=== PATIENT | female | born 1970 | race Caucasian/White ===

== ENCOUNTER 2024-02-01 08:00 | Emergency (ER) | payer BC, SELFPAY ==
--- NOTE | ~2024-02-01 | XR_ITS ---
EXAMINATION: XR TIBIA AND FIBULA, LEFT CLINICAL INFORMATION: Tibia and fibula pain. COMPARISON: Left ankle 02/01/2024 at 9:00 AM. TECHNIQUE: AP and lateral views of the left tibia and fibula were obtained. FINDINGS: There is an oblique fibular fracture with moderate lateral malleolar soft tissue swelling. There is a mildly displaced medial malleolar fracture as well. The ankle mortise and subtalar joints are maintained normal. XR/XR tibia fibula LT 2V IMPRESSION: There is oblique fibular fracture distal fibula with extension to articular surface stabilized with left ankle in a cast. The medial malleolar fracture is mildly displaced and stabilized.
--- NOTE | ~2024-02-01 | XR_ITS ---
EXAMINATION: XR ANKLE, LEFT CLINICAL INFORMATION: Left ankle swelling COMPARISON: 06/11/2019 TECHNIQUE: AP, lateral, and mortise views of the left ankle. FINDINGS: Significant ankle soft tissue swelling, laterally greater than medially. Lateral mortise is slightly widened. Distal fibular fracture with small displaced bony fragment seen. Likely comminuted fractures of the medial malleolus present with small avulsed fracture fragment. Posterior malleolar fracture is also suspected. Well-corticated distal fibular old fracture fragments again seen. XR/XR ankle LT min 3V IMPRESSION: Consider CT for more definitive evaluation of multiple complex ankle fractures involving distal fibula, medial malleolus and likely posterior malleolus. Question ankle mortise disruption. Significant soft tissue swelling.
[2024-02-01 08:02] VITALS: BP 189/80; PULSE 79; RESP 18; TEMP 36.8; O2SAT 97; BMI 30.3
--- NOTE | 2024-02-01 08:15 | ED_ITS ---
HPI - Extremity Injury (Lower) General Chief Complaint: Extremity Injury, Lower Stated Complaint: Ankle injury Time Seen by Provider: 02/01/24 08:14 Source: patient Mode of arrival: ambulatory Limitations: no limitations History of Present Illness HPI Narrative: This is a 53-year-old female presenting with left ankle pain and swelling status post slipping earlier this morning. Patient reports she was going down the ramp, slipped, ankle rolled outward since then has been having pain and swelling. She did not fall, hit her head or lose consciousness. She has not on blood thinners. She reports pain worse with movement better at rest. Denies numbness and tingling. No headache, vision changes, dizziness, weakness, chest pain, shortness of breath or any preceding symptoms to fall Related Data Previous Rx's Medication Instructions Recorded ketorolac 10 mg tablet 10 mg PO TID PRN pain 5 days #15 02/01/24 tabs Allergies Allergy/AdvReac Type Severity Reaction Status Date / Time liraglutide [From Victoza] Allergy Unknown Abdominal Verified 02/01/24 09:55 Pain morphine [MORPHINE] Allergy Unknown Hives Verified 02/01/24 09:55 Review of Systems Review of Systems: Yes all other systems are reviewed and are negative PMFSH Past Medical History Attestation statement: The following information was validated with the patient. Source: old records reviewed and nursing notes reviewed Social History Social History Unable to assess alcohol history related to: Unknown Smoked in Last 30 Days: No Use of substances other than those prescribed or required for medical reasons: Unknown Advance Directives: Yes Advance Directives Information Provided: Yes Advance Directives on File: No Physical Exam Vital Signs: Vital Signs: Last Vital Signs Temp 98.1 F 02/01/24 10:00 Pulse 84 02/01/24 10:00 Resp 18 02/01/24 10:00 BP 148/67 H 02/01/24 10:00 Pulse Ox 97 02/01/24 10:00 O2 Del Method Room Air 02/01/24 10:00 BMI result Body Mass Index 30.3 vss Appearance: Alert.? Oriented X3.? No acute distress.? Head: Normocephalic, atraumatic, no step-offs or deformities Eyes: Pupils equal, round and reactive to light.? Neck: Normal inspection.? Neck supple.? CVS:Pulses normal.? Respiratory: No respiratory distress.? Abdomen: Soft and nontender.? Skin: Skin warm and dry.? Normal skin color.? Normal skin turgor.? Extremities: No lower extremity edema.? No calf ttp. 5/5 strength to bilateral upper and lower extremitie 2+ dorsalis pedis, anterior tibialis posterior tibialis pulses equal bilateral. Normal sensation distally to bilateral lower extremities capillary refill less than 2 seconds to bilateral lower extremities there is tenderness to palpation to the lateral aspect of left ankle with overlying edema, no overlying ecchymosis. Full range of motion to bilateral ankles however slight discomfort with range of motion of left ankle. Neuro: Oriented X 3.? No motor deficit.? No sensory deficit. CN 2-12 intact Course Reevaluation(s) Reevaluation #1: X-ray of ankle with multiple complex ankle fractures involving distal fibula medial malleolus unlikely posterior malleolus question ankle mortise disruption. Significant soft tissue swelling. I did discuss this case with ortho who recommends posterior splint. Will give her crutches. When I was splinting patient she had some tenderness to palpation overlying the anterior tib-fib region, I did obtain a tib-fib x-ray to rule out more fractures. Patient placed in a posterior splint, after placing splint neurovascular status intact. Patient feels well. Will be educated on proper use of crutches. Radha nt states she does not want a narcotic but will take Toradol. Will have her follow-up with the orthopedic team. Time: 10:12 Medications Administered Discontinued Medications Generic Name Dose Route Start Last Admin Trade Name John PRN Reason Stop Dose Admin Ketorolac Tromethamine 30 mg 02/01/24 09:19 02/01/24 09:56 Ketorolac Tromethamine 30 Mg/Ml Vial IM 02/01/24 09:20 30 mg ONCE ONE Administration Medical Decision Making Medical Decision Making [facility] Narrative: 53-year-old female presents with left ankle pain and swelling status post rolling her ankle while slipping earlier today. Not on blood thinners. No injury to head, neck, chest, abdomen or Physical exam significant for No lower extremity edema.? No calf ttp. 5/5 strength to bilateral upper and lower extremitie 2+ dorsalis pedis, anterior tibialis posterior tibialis pulses equal bilateral. Normal sensation distally to bilateral lower extremities capillary refill less than 2 seconds to bilateral lower extremities there is tenderness to palpation to the lateral aspect of left ankle with overlying edema, no overlying ecchymosis. Full range of motion to bilateral ankles however slight discomfort with range of motion of left ankle. History and physical exam concerning for sprain or strain. Unlikely fracture, dislocation, neurovascular compromise or threat to limb. Plan x-ray. No indication for imaging to head, neck, chest, abdomen or pelvis as there was no reported trauma. No signs of trauma on exam either. Micronesian head CT score negative. Differential Diagnosis Differential Diagnoses: The differential diagnosis associated with the presentation includes History and physical exam concerning for sprain or strain. Unlikely fracture, dislocation, neurovascular compromise or threat to limb. Admission/Observation Consideration of admission/observation: Escalation of care including admission/observation considered Unlikely Consult Healthcare Provider Management of the patient was discussed with: Supervisor Train Operations (Chrystal No ) Independent Interpretation I performed an independent interpretation of an: Plain X-Ray ( XR/XR ankle LT min 3V IMPRESSION: Consider CT for more definitive evaluation of multiple complex ankle fractures involving distal fibula, medial malleolus and likely posterior malleolus. Question ankle mortise disruption. Significant soft tissue swelling. ) Radiology Impression Discussion of test interpretation with radiology: I have reviewed the radiologist's reading. Tests considered The following testing was considered but not selected: No indication for imaging to head, neck, chest, abdomen or pelvis as there was no reported trauma. No signs of trauma on exam either. Micronesian head CT score negative. Prescription Management I considered prescription management with: Pain Medication Critical Care Time Critical Care Time Critical Care Time: Yes Total Critical Care Time: 35 Attestation: I attest to this time spent taking care of the patient, obtaining history, physical, reviewing labs, imaging, speaking to my attending, speaking to specialist. Discharge Plan Discharge Clinical Impression: Ankle fracture, Fall from slipping Patient Disposition: Home, Self-Care Instructions: Ankle Fracture (DC) Additional Instructions: Take your medications as prescribed. If you were prescribed antibiotics today, it is important that you take your medication to their entirety, do not skip any doses, do not finish them early. Follow-up with your primary care provider this week. Return to the emergency department with new or worsening symptoms. Such as fevers, chills, chest pain, shortness of breath, nausea, vomiting, dizziness, headache, vision changes, lethargy In case of emergency call 911 Please follow-up with the orthopedic team as soon as possible. Call to schedule an appointment. Toradol has been sent to your pharmacy, you tolerated this well in the department. Please take this as prescribed do not take this with ibuprofen, or other NSAIDs, do not mix this with alcohol. Side effects of this medication including increased risk for bleeding and possible kidney injury. XR/XR tibia fibula LT 2V IMPRESSION: There is oblique fibular fracture distal fibula with extension to articular surface stabilized with left ankle in a cast. The medial malleolar fracture is mildly displaced and stabilized. Prescriptions: New ketorolac 10 mg tablet 10 mg PO TID PRN (Reason: pain) 5 Days Qty: 15 0RF Referrals: [facility] [place] [Provider Group] - 2 days Miguelangel Hazel DO, MD [Primary Care Provider] - 2 days Stand Alone Forms: Work/School Release
--- NOTE | 2024-02-01 09:45 | PC.NURSE ---
splint applied bypa- ordered not to d/c as needs tib/fib xray.
[2024-02-01] MEDS: Ketorolac Tromethamine 30 MG/ML VIAL IM (09:56)
[2024-02-01 10:00] VITALS: BP 148/67; PULSE 84; RESP 18; TEMP 36.7; O2SAT 97
[2024-02-01 11:40] VITALS: BP 147/71; PULSE 82; RESP 18; TEMP 36.6; O2SAT 98
== END 2024-02-01 11:48 | disposition home or self-care (01) ==
PROVIDERS: Emergency Provider Emergency Medicine; PCP Internal Medicine
DX: S82.832A Other fracture of upper and lower end of left fibula, initial encounter for closed fracture (principal); X50.1XXA Overexertion from prolonged static or awkward postures, initial encounter; Y93.9 Activity, unspecified; Y92.9 Unspecified place or not applicable; Y99.9 Unspecified external cause status
CPT/HCPCS: 29515; 73590; 73610; 96372; 99284; J1885

== ENCOUNTER 2024-02-03 19:01 | Emergency (ER) | payer BC, SELFPAY ==
--- NOTE | ~2024-02-03 | US_ITS ---
EXAMINATION: US VENOUS ULTRASOUND WITH DOPPLER LOWER EXTREMITY, LEFT CLINICAL INFORMATION: Swelling and pain COMPARISON: None available. TECHNIQUE: Ultrasound of the deep veins is performed from the hip to the calf with compression sonography and color and pulse Doppler assessment. Spectral analysis with color-flow imaging is performed. FINDINGS: There is normal venous compression and respiratory variation and augmented flow. The visualized common femoral vein, superficial femoral vein, profunda femoral vein, popliteal vein, and the trifurcation region shows no evidence of deep venous thrombosis. There is no significant popliteal fossa cyst. If the patient's symptoms persist, followup ultrasound in 5 days 7 days might be of value to exclude proximal propagation from a non-visualized calf vein. US/US venous duplex LE LT IMPRESSION: No DVT demonstrated in the left lower extremity.
[2024-02-03 19:25] VITALS: BP 166/99; PULSE 100; RESP 16; TEMP 36.7; O2SAT 100; BMI 30.3
--- NOTE | 2024-02-03 21:41 | ED.LOWEXIN ---
HPI - Extremity Injury (Lower) General Chief Complaint: Extremity Injury, Lower Stated Complaint: foot swelled up/was here 02/01/2024 Time Seen by Provider: 02/03/24 21:32 Source: patient and family Mode of arrival: ambulatory Limitations: no limitations History of Present Illness HPI Narrative: 53-year-old female with a history diabetes mellitus and hypertension who presents emergency department who twisted and fractured her left ankle on 02/01/2024. She was seen here in our emergency department and was noted to have a complex fracture of her ankle involving the distal fibula, medial analysis and most likely the posterior malleolus (trimalleolar fracture). Patient was placed in a ortho glass stirrup splint. She states that she has not been putting weight on her broken ankle and has been elevating the ankle. She states that she was having increased discomfort inside of the splint in noted that her foot was swollen therefore she came to emergency department for evaluation. After the splint was removed patient was noted to have swelling of her foot, ecchymosis around her medial and lateral malleolus as well as swelling of her left calf. Patient denied systemic symptoms such as fever, chills, cough, chest pain, shortness of breath, nausea, vomiting, fatigue. She states she is having pain in her left ankle and she has been taking ketorolac 3 times a day and Tylenol with only minimal relief for pain. She states that she can not take most opiates since the cause a change in mental status and agitation. She states she can take Tylenol with codeine. Related Data Previous Rx's Medication Instructions Recorded ketorolac 10 mg tablet 10 mg PO TID PRN pain 5 days #15 02/01/24 tabs Allergies Allergy/AdvReac Type Severity Reaction Status Date / Time liraglutide [From Victoza] Allergy Unknown Abdominal Verified 02/03/24 19:25 Pain morphine [MORPHINE] Allergy Unknown Hives Verified 02/03/24 19:25 Review of Systems Review of Systems: Yes all other systems are reviewed and are negative [facility] Past Medical History [facility] Narrative: Social history: She denies tobacco, alcohol and drug use. Social History Social History Unable to assess alcohol history related to: Unknown Advance Directives: No Advance Directives Information Provided: No Physical Exam Vital Signs: Vital Signs: Last Vital Signs Temp 98.1 F 02/03/24 19:25 Pulse 100 02/03/24 19:25 Resp 16 02/03/24 19:25 BP 166/99 H 02/03/24 19:25 Pulse Ox 100 02/03/24 19:25 O2 Del Method Room Air 02/03/24 19:25 BMI result Body Mass Index 30.3 Vital signs did reveal an elevated blood pressure of 166/99-this could be secondary to pain or her essential hypertension. Exam: General: Awake, alert in no distress Extremities: The patient's left foot ankle and calf are 1-1/2 times the size of the right lower extremity. Patient has normal peripheral pulses, her left foot and toes are warm to the touch and are not cold, she does have ecchymosis over the medial and lateral aspects of her ankle, she has no tenderness palpation of the calf but the left calf is swollen compared to the right. Psych: Pleasant, cooperative Medical Decision Making Medical Decision Making MDM Narrative: 53-year-old female with a history of diabetes, hypertension who sustained a twisting injury to her left ankle on 02/01/2024 and has a complex ankle fracture most likely trimalleolar. She was seen here in the emergency department and placed in a sugar-tong ortho glass splint, she states she has been nonweightbearing and has been keeping her leg elevated. She noticed increased pain while she was in the splint and here in the emergency department when the splint was removed she does have significant swelling of her left foot ankle and calf compared to the right. She has had no concerning systemic symptoms. Patient's vital signs did reveal an elevated blood pressure most likely secondary to pain and her essential hypertension. Differential diagnosis: ?Includes but is not limited to soft tissue swelling, restrictive splint, DVT, compartment syndrome for informant Following evaluation was ordered: Left lower extremity duplex ultrasound Course: 23:00 Patient's duplex ultrasound revealed no DVT which is reassuring. I did tell the patient however that this should be repeated in 4-7 days to rule out propagating clot. I did reapply the patient's splint and made sure that it was not too tight. Patient was advised to keep her leg elevated and to follow-up with orthopedics for further evaluation. Procedures Procedure Narrative Procedure Narrative: Left ankle fracture splint application (ortho glass sugar-tong and posterior splint) I was assisted by emergency room biological lab technician. A cloth sock was applied to the patient's foot ankle and calf. Three layers of cast padding was used to pad the skin. The patient's previous sugar drawn splint was used and a new posterior splint 3 x 12 in was applied. The splints were held in place with a 6 in Gavin wrap and a 4 in Gavin wrap. After application, the patient's extremity is neurovascularly intact. The patient states that the splint feels comfortable and does not feel too tight. Discharge Plan Discharge Clinical Impression: Acute pain of left lower extremity, Left leg swelling Ankle fracture, left Qualifiers: Encounter type: subsequent encounter Fracture type: closed Patient Disposition: Home, Self-Care Additional Instructions: The duplex ultrasound of your left lower extremity revealed no blood clot which is reassuring. Sometimes the ultrasound can miss a blood clot from the ankle to the knee or there can be a very small blood clot that can not be seen. If there is a blood clot it can grow and spread above your knee. Therefore, you will need a repeat ultrasound of your lower extremity in 4-7 days to make sure that there is not a propagating clot. I did reapply the splint, keep this on until you follow-up with the orthopedic providers tomorrow. Police discuss with them the need to get a repeat ultrasound in 4-7 days to rule out possible propagation of an unseen clot. Try to keep your leg elevated as high as possible and that should help reduce the swelling. You can also continue to apply ice to help reduce the swelling. You should try to be nonweightbearing as well. Follow-up with your doctor in 2 days. Please return to the emergency department if your symptoms get worse or if you develop any symptoms that are concerning to you. Prescriptions: No Action ketorolac 10 mg tablet 10 mg PO TID PRN (Reason: pain) 5 Days Qty: 15 0RF
[2024-02-03 23:19] VITALS: BP 166/75; PULSE 96; RESP 12; TEMP 35.8; O2SAT 96
== END 2024-02-03 23:39 | disposition home or self-care (01) ==
PROVIDERS: Emergency Provider Emergency Medicine Emergency Medical Services; PCP Internal Medicine
DX: R60.0 Localized edema (principal); M25.572 Pain in left ankle and joints of left foot
CPT/HCPCS: 29515; 93971; 99283; 99284

== ENCOUNTER 2024-02-04 12:32 | Outpatient (AMB) | payer BC, SELFPAY ==
--- NOTE | 2024-02-04 12:41 | MHC.OFFVIS ---
Intake Intake Visit Reasons: FC - Lt Distal Fib/Medial Mal Fx Intake Note: Carin crook 53 year old female presents today for an ER follow up of left distal fibular medial mal fracture, DOI 02/01/24. Patient reports she was walking down a ramp, when she slipped on garcia that was on the ramp causing her to slide down and fall. She was seen at [facility] ED where xrays were obtained and splint was applied. Currently her pain level is 10 out of 10, states her pain is throbbing. Finds most relief with Tylenol 3 that was prescribed by ED. Denies numbness or tingling. She has pain with use of a knee scooter however she is not able balance using crutches. Hx of fracture in ankle about 3 years ago. Patient has been out of work since injury. Allergies liraglutide [From Victoza] Allergy (Unknown, Verified 02/04/24 12:53) Abdominal Pain morphine [MORPHINE] Allergy (Unknown, Verified 02/04/24 12:53) Hives HPI FC - Lt Distal Fib/Medial Mal Fx HPI Details 53-year-old female who presents to the office today for an ER follow-up of left ankle injury s/p leaving work when she was going down a ramp and slipped on the garcia that was on the ramp causing her to slide down and fall, 02/01/24. She was seen at ED where x-rays were performed and splint was applied. She currently states she has throbbing pain in her ankle and rates the pain as 10 on the scale of 0-10. Her pain comes with use of a knee scooter however she is not able to balance using the crutches. She denies any numbness or tingling. She finds relief with Tylenol prescribed by the ED. She has a history of ankle fracture about 3 years ago. She has a history of diabetes. Her sugar levels are well controlled. 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, right hand dominant Review of Systems Const All systems reviewed & are unremarkable except as noted in HPI and below Physical Exam Const General: cooperative, healthy appearing, comfortable, no acute distress, well developed and alert Orientation/consciousness: patient oriented x3 HEENT Head: Yes normal to inspection, Yes normocephalic and Yes atraumatic Eyes General: appearance normal, both eyes and all related structures Resp Effort & Inspection: normal respiratory effort and able to speak in complete sentences Cardio Rate: regular rate Peripheral pulses: Peripheral pulses 2+ throughout GI Palpation (GI): Soft to palpation Skin Lesions: no lesions Rashes: no rashes Neuro General: patient oriented x3 Extrem Other: Left ankle: Normal to inspection. She has diffused swelling throughout the medial and lateral malleolus with tenderness to palpation. No pain along the proximal tibia. Calf supple, nontender. NVI. Office Procedures Casting/Splints [id number] Leg splint application Procedure code (CPT) selection complete Fracture Care Fracture Billing Code: Fracture Billing Code Results Reviewed Results Reviewed: xrays of the left ankle obtained on 02/01/24 show bimalleolar ankle fracture without displacement of the medial mal or mortise Assessment & Plan Assessment & Plan (1) Ankle fracture, left: Code(s): S82.892A - Other fracture of left lower leg, initial encounter for closed fracture Qualifiers: Encounter type: initial encounter Fracture type: closed Qualified Code(s): S82.892A - Other fracture of left lower leg, initial encounter for closed fracture Plan Images were reviewed with Dr. Peña in the office today. The decision made at this time is to treat this non operatively in a splint. She will remain non weight bearing and see me back in 2 weeks with repeat x-rays. If any displacement occurs, we will need to discuss surgical intervention, otherwise, casting x4 weeks. I also gave her a prescription of Tylenol with codeine which she will take at night time only to help with the pain. She will see us back as planned. Medications: New acetaminophen-codeine 300-30 mg 1 tab PO .QHS PRN 7 tabs 0RF pain 7 days Patient Instructions: Scribed for Marybel Goodman PA-C, by Pb Moncada chief medical director, on 02/04/2024 at 1:15 PM EST. Marybel Diaz PA-C, have personally reviewed and agree with the information entered by the scribe. Coding Level of Care Code New Pt Level 3 (09363) Diagnoses Closed fracture of left ankle, initial encounter S82.892A Encounter type: initial encounter Fracture type: closed CPT Codes Splint - CPT: 34087-Ditri Leg splint application ([id number]) Fracture Care - Fracture Billing Code: Fracture Billing Code ([id number])
== END 2024-02-04 13:21 | disposition home or self-care (01) ==
PROVIDERS: PCP Internal Medicine; Visit Provider Physician Assistant
DX: S82.845A Nondisplaced bimalleolar fracture of left lower leg, initial encounter for closed fracture (principal); W01.0XXA Fall on same level from slipping, tripping and stumbling without subsequent striking against object, initial encounter
CPT/HCPCS: 27808; 99203

== ENCOUNTER → 2024-02-04 12:32 | Outpatient (BNVA) | payer BC, SELFPAY | PROVIDERS: PCP Internal Medicine; Visit Provider Physician Assistant | DX: S82.892A Other fracture of left lower leg, initial encounter for closed fracture (principal) | CPT/HCPCS: 27808 ==

== ENCOUNTER 2024-02-21 06:36 | Outpatient (REF) | payer BC, SELFPAY ==
--- NOTE | ~2024-02-21 | XR_ITS ---
EXAMINATION: XR ANKLE, LEFT CLINICAL INFORMATION: Left ankle pain COMPARISON: 02/01/2024 chest TECHNIQUE: AP, lateral, and mortise views of the left ankle. FINDINGS: Cast has been removed. Distal fibular medial/malleolar/anterior tibial fracture sites are slightly more conspicuous currently. Interval appearance of distal medial malleolar curvilinear density, question small avulsion. Developing calcifications about the medial malleolus and distal medial tibial metaphysis. No medial clear space widening. Stable well-corticated bony density distal fibula. Decreasing soft tissue swelling about the ankle. XR/XR ankle LT min 3V IMPRESSION: Multiple ankle fractures. Decreasing soft tissue swelling.
== END 2024-02-21 06:37 | disposition home or self-care (01) ==
LOC: HO.HOSX 06:36
PROVIDERS: Visit Provider Physician Assistant
DX: S82.892D Other fracture of left lower leg, subsequent encounter for closed fracture with routine healing (principal)
CPT/HCPCS: 29405; 73610

== ENCOUNTER 2024-02-21 11:29 | Outpatient (AMB) | payer BC, SELFPAY ==
[2024-02-21 11:32] VITALS: BMI 30.3
--- NOTE | 2024-02-21 11:32 | A.OFFVIS_ITS ---
Intake Vital Signs 02/21/24 11:32 Height 4 ft 11 in Weight 150 lb BMI 30.3 Intake Visit Reasons: OV-Left ankle fx-xrays Intake Note: Carin 53 yr old female presents today for her follow up visit for her left distal fibular medial mal fracture, DOI 02/01/24. Splint removed and xrays updated. Patient states?pain and discomfort. Information Interpreted: non-clinical & clinical Accompanied by: Self / Same As Patient Allergies liraglutide [From Victoza] Allergy (Unknown, Verified 02/21/24 11:34) Abdominal Pain morphine [MORPHINE] Allergy (Unknown, Verified 02/21/24 11:34) Hives HPI OV-Left ankle fx-xrays HPI Details 53-year-old female who returns to the [facility] today for a follow-up of left ankle fracture. She states she has mild pain as well as discomfort in her ankle which is aggravated at night. She has no other concerns today. 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 Review of Systems Const All systems reviewed & are unremarkable except as noted in HPI and below Physical Exam Vital Signs: BMI result Body Mass Index 30.3 Const General: cooperative, healthy appearing, comfortable, no acute distress, well developed and alert Orientation/consciousness: patient oriented x3 HEENT Head: Yes normal to inspection, Yes normocephalic and Yes atraumatic Eyes General: appearance normal, both eyes and all related structures Resp Effort & Inspection: normal respiratory effort and able to speak in complete sentences Cardio Rate: regular rate Peripheral pulses: Peripheral pulses 2+ throughout GI Palpation (GI): Soft to palpation Skin Lesions: no lesions Rashes: no rashes Neuro General: patient oriented x3 Extrem Other: Left ankle: Normal to inspection. No swelling or bruising along the medial and lateral malleolus with mild tenderness to palpation. No pain along the proximal tibia. Calf supple, nontender. NVI. Office Procedures Casting/Splints 37044-Cmoas Leg Cast Application Procedure code (CPT) selection complete Results Reviewed Results Reviewed: Xrays were obtained in the office today and personally reviewed by me of the left ankle show stable fracture pattern with intact ankle mortise. Assessment & Plan Assessment & Plan (1) Ankle fracture, left: Code(s): S82.892A - Other fracture of left lower leg, initial encounter for closed fracture Qualifiers: Encounter type: initial encounter Fracture type: closed Qualified Code(s): S82.892A - Other fracture of left lower leg, initial encounter for closed fracture Plan She was placed in short leg cast non weight bearing. I did explain at this time the fracture appears stable and should heal well. I did explain the risk of OA in the setting of fracture. She will see me back in 4 weeks with cast off and new x-rays, sooner if needed. Orders: Orders XR ankle LT min 3V Today M25.572 - Pain in left ankle and joints of left foot Medications: Refilled acetaminophen-codeine 300-30 mg 1 tab PO .QHS PRN 7 tabs 0RF pain 7 days Patient Instructions: Scribed for Marybel Goodman PA-C, by Pb Moncada diagnostic medical sonographer, on 02/21/2024 at 11:30 AM EST. IMarybel PA-C, have personally reviewed and agree with the information entered by the scribe. Coding Level of Care Code Global (29315) Diagnoses Closed fracture of left ankle, initial encounter S82.892A Encounter type: initial encounter Fracture type: closed CPT Codes Casting - CPT: 89534-Nbial Leg Cast Application ([id number])
== END 2024-02-21 12:37 | disposition home or self-care (01) ==
PROVIDERS: PCP Internal Medicine; Visit Provider Physician Assistant
DX: S82.892A Other fracture of left lower leg, initial encounter for closed fracture (principal)
CPT/HCPCS: 29405; 99024

== ENCOUNTER 2024-03-12 08:09 | Outpatient (REF) | payer BC, SELFPAY ==
--- NOTE | ~2024-03-12 | XR_ITS ---
EXAMINATION: XR ANKLE, LEFT CLINICAL INFORMATION: Pain in left ankle and 4 COMPARISON: 02/13/2024, 02/01/2024, 06/11/2019. TECHNIQUE: AP, lateral, and mortise views of the left ankle. FINDINGS: 3 views of left ankle demonstrate remote unfused fracture of the tip of the lateral malleolus and healing fracture of the medial and lateral malleoli, with well aligned fragments and with progression of periosteal reaction seen along the lateral and medial malleoli. The fracture lines are more conspicuous but lateral view revealed fractures through the lateral malleolus not obviously. Ankle mortise is preserved. There is calcification in the soft tissues adjacent to the posterior malleolus showing interval healing. An adjacent to the tip of medial malleolus opacification most likely due to healing of avulsion fragment. Soft tissues are unremarkable otherwise. XR/XR ankle LT min 3V IMPRESSION: Combination of old and new to malleolar fracture with well aligned fragments and periosteal reaction, demonstrating interval healing
== END 2024-03-12 08:10 | disposition home or self-care (01) ==
LOC: HO.HOSX 08:09
PROVIDERS: Visit Provider Physician Assistant
DX: S82.892D Other fracture of left lower leg, subsequent encounter for closed fracture with routine healing (principal)
CPT/HCPCS: 73610

== ENCOUNTER 2024-03-12 09:39 | Outpatient (AMB) | payer BC, SELFPAY ==
--- NOTE | 2024-03-12 09:44 | A.OFFVIS_ITS ---
Intake Intake Visit Reasons: ov- left ankl fx -cast off w xryas Intake Note: Carin a 53 year old female who presents today for a follow up of left ankle fracture, DOI 02/01/24. Cast off and xrays updated. Patient reports she is doing well, states some discomfort with use of scooter with cast on. Allergies liraglutide [From Victoza] Allergy (Unknown, Verified 03/12/24 10:15) Abdominal Pain morphine [MORPHINE] Allergy (Unknown, Verified 03/12/24 10:15) Hives HPI ov- left ankl fx -cast off w xryas HPI Details 53-year-old female who returns to the [facility] today for a follow-up of left ankle fracture, 02/01/24. She states she has mild discomfort with the use of scooter with cast on. She is doing well overall and has no concerns today. 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 Review of Systems Const All systems reviewed & are unremarkable except as noted in HPI and below Physical Exam Const General: cooperative, healthy appearing, comfortable, no acute distress, well developed and alert Orientation/consciousness: patient oriented x3 HEENT Head: Yes normal to inspection, Yes normocephalic and Yes atraumatic Eyes General: appearance normal, both eyes and all related structures Resp Effort & Inspection: normal respiratory effort and able to speak in complete sentences Cardio Rate: regular rate Peripheral pulses: Peripheral pulses 2+ throughout GI Palpation (GI): Soft to palpation Skin Lesions: no lesions Rashes: no rashes Neuro General: patient oriented x3 Extrem Other: Left ankle: Normal to inspection. No swelling or bruising along the medial and lateral malleolus with mild tenderness to palpation along the medial aspect of the ankle. No pain along the proximal tibia. Calf supple, nontender. NVI. Results Reviewed Results Reviewed: Xrays were obtained in the office today and personally reviewed by me of the left ankle show stable fracture pattern with intact ankle mortise. Assessment & Plan Assessment & Plan (1) Ankle fracture, left: Code(s): S82.892A - Other fracture of left lower leg, initial encounter for closed fracture Qualifiers: Encounter type: subsequent encounter Fracture type: closed Fracture healing: with routine healing Qualified Code(s): S82.892D - Other fracture of left lower leg, subsequent encounter for closed fracture with routine healing Plan She was transitioned to a tall boot weight bearing as tolerated. She will wear the boot at all time while ambulating. She can remove the boot for rest and hygiene. I did give her a therapy order to work on ROM, gentle strengthening and proprioceptive training. She will return to work on 03/13/24 without restrictions and see me back in 6 weeks with new x-rays, sooner if needed. Orders: Orders XR ankle LT min 3V Today M25.572 - Pain in left ankle and joints of left foot PT Evaluation and Treatment Today S82.892A - Other fracture of left lower leg, initial encounter for closed fracture Patient Instructions: Scribed for Marybel Goodman PA-C, by Pb Moncada medical aides teacher, on 03/12/2024 at 10:00 AM EST. Mraybel Diaz PA-C, have personally reviewed and agree with the information entered by the scribe. Coding Level of Care Code Global (84969) Diagnoses Closed fracture of left ankle with routine healing, subsequent encounter S82.892D Encounter type: subsequent encounter Fracture type: closed Fracture healing: with routine healing
== END 2024-03-12 10:32 | disposition home or self-care (01) ==
PROVIDERS: PCP Internal Medicine; Visit Provider Physician Assistant
DX: S82.892D Other fracture of left lower leg, subsequent encounter for closed fracture with routine healing (principal)
CPT/HCPCS: 99024

== ENCOUNTER 2024-04-18 08:00 | Outpatient (RCR) | payer BC, SELFPAY ==
--- NOTE | 2024-03-18 10:38 | MHC.PT.EP ---
[facility] [place] Office [place] Office [place] Office [address] [phone] F: [phone] F: [phone] F: [phone] F: [phone] Physical Therapy Plan of Care Date of Evaluation: 03/18/24 Date of Surgery: NA Diagnosis: FRACTURE OF THE L ANKLE Assessment: Pt IS 53 YO F REFERRED TO PT FROM [facility] S/P L MED/LAT MALLEOLUS FXS FROM A SLIP AND FALL ON 02/01/24. PRESENTS TO PT WITH HIGH WALKING BOOT. HAS MINIMAL PAIN, SOME INFLAMMATION NOTED, DECREASED END RANGE OF ANKLE MOTION, AND DECREASED L ANKLE MM STRENGTH. SHOULD BENEFIT FROM PT TO ADDRESS THESE ISSUES. OF NOTE, Pt HAD AN ANKLE FX ON THIS SAME SIDE IN THE PAST (NO PT) Frequency and Duration: The patient will be seen 1X/WK X 6-8 WKS Short Term Goals: 1. INCREASED AWARENESS ANKLE CARE 2. I HEP WITH DC EX PLAN 3. I KT IF INDICATED [facility]ci Goals: 1. INCREASED L ANKLE ROM 5 DEGREES T/O 2. IMPROVED GT PATTERN WITHOUT BOOT Treatment Plan: Modalities to reduce pain, spasms and effusion. Manual therapy to restore motion and function. Therapeutic exercise to improve strength and flexibility. Neuromuscular re-education for posture and balance. Therapeutic activities to return to functional activities of daily living. Electronically signed by: IAN VENCES PT Please sign and return to therapist. Thank you for your referral.
--- NOTE | 2024-05-14 14:21 | MHC.PT.DC ---
[facility] [place] Office [place] Office [place] Office [address] Tabatha Rodriguez [address] [phone] F: [phone] F: [phone] F: [phone] F: [phone] Physical Therapy Discharge Report Diagnosis: FRACTURE OF THE L ANKLE Date of Surgery: NA Date of Evaluation: 03/18/24 Date of Discharge: 05/14/24 Treatments to Date: 5 Cancellations to Date: No Shows to Date: Discharge Status: Improved Function Independent with HEP Patient Elected to Stop Discharge Summary: PER LAST APPT ASSESSMENT BY MEREDITH BOYKIN MORTGAGE MANAGER ON 04/18/24 Carin davidson added core stab ex's and demonstrated proper form w/all stab ex's w/o px. . Pt THEN SAW ORTHO ON 04/23/24 AND BOOT DISCONTINUED AND Pt DONE WITH PT (PER NOTE) Electronically signed by: IAN VENCES PT Please sign and return to therapist. Thank you for your referral.
== END 2024-05-14 14:21 | disposition home or self-care (01) ==
LOC: HO.PT 08:00
PROVIDERS: PCP Internal Medicine; Visit Provider Physician Assistant
DX: S82.892D Other fracture of left lower leg, subsequent encounter for closed fracture with routine healing (principal)
CPT/HCPCS: 97110; 97140; 97161; 97530

== ENCOUNTER 2024-04-23 13:00 | Outpatient (REF) | payer BC, SELFPAY ==
--- NOTE | ~2024-04-23 | XR_ITS ---
EXAMINATION: XR ANKLE, LEFT CLINICAL INFORMATION: Left ankle pain. COMPARISON: Multiple priors, most recent left ankle radiographs dated 03/12/2024. TECHNIQUE: AP, lateral, and mortise views of the left ankle. FINDINGS: Redemonstration of a corticated ossification along the distal aspect of the lateral malleolus, unchanged. Periosteal reaction redemonstrated along the medial malleolus as well as along the anterior and posterior aspects of the distal tibia, slightly increased in prominence when compared to the prior examination. The ankle mortise is maintained. No joint space narrowing or marginal osteophytes. No osteochondral lesion. Tiny dorsal calcaneal spur. No significant joint effusion. Circumferential soft tissue swelling. XR/XR ankle LT min 3V IMPRESSION: 1. Circumferential soft tissue swelling without acute fracture or dislocation. 2. Periosteal reaction redemonstrated along the medial malleolus as well as along the anterior and posterior aspect of the distal tibia, slightly increased in prominence when compared to the prior examination.
== END 2024-04-23 13:01 | disposition home or self-care (01) ==
LOC: HO.HOSX 13:00
PROVIDERS: Visit Provider Physician Assistant
DX: S82.892D Other fracture of left lower leg, subsequent encounter for closed fracture with routine healing (principal)
CPT/HCPCS: 73610

== ENCOUNTER 2024-04-23 15:23 | Outpatient (AMB) | payer BC, SELFPAY ==
--- NOTE | 2024-04-23 15:34 | MHC.OFFVIS ---
Vital Signs 04/23/24 15:42 Height 4 ft 11 in Weight 150 lb BMI 30.3 Intake Visit Reasons: OV-left ankle fx w xrays Allergies liraglutide [From Victoza] Allergy (Unknown, Verified 03/12/24 10:15) Abdominal Pain morphine [MORPHINE] Allergy (Unknown, Verified 03/12/24 10:15) Hives HPI HPI OV-left ankle fx w xrays: Details: 53-year-old female who returns to the office today for a follow-up of left ankle fracture. She states she has pain however she attributes her pain to the history of restless leg syndrome and neuropathy. She denies any pain with ambulation and is doing well overall. She is completed with her physical therapy sessions. She has no other concerns. 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 Review of Systems Const All systems reviewed & are unremarkable except as noted in HPI and below Physical Exam Vital Signs: BMI result Body Mass Index 30.3 Const General: cooperative, healthy appearing, comfortable, no acute distress, well developed and alert Orientation/consciousness: patient oriented x3 HEENT Head: Yes normal to inspection, Yes normocephalic and Yes atraumatic Eyes General: appearance normal, both eyes and all related structures Resp Effort & Inspection: normal respiratory effort and able to speak in complete sentences Cardio Rate: regular rate Peripheral pulses: Peripheral pulses 2+ throughout GI Palpation (GI): Soft to palpation Skin Lesions: no lesions Rashes: no rashes Neuro General: patient oriented x3 Extrem Other: Left ankle: Normal to inspection. No swelling or bruising along the medial and lateral malleolus without tenderness to palpation along the medial aspect of the ankle. No pain along the proximal tibia. Calf supple, nontender. NVI. Results Reviewed Results Reviewed: Xrays were obtained in the office today and personally reviewed by me of the left ankle show stable fracture pattern with intact ankle mortise and interval healing Assessment & Plan Assessment & Plan (1) Ankle fracture, left: Code(s): S82.892A - Other fracture of left lower leg, initial encounter for closed fracture Category: Medical Qualifiers: Encounter type: subsequent encounter Fracture healing: with routine healing Fracture type: closed Qualified Code(s): S82.892D - Other fracture of left lower leg, subsequent encounter for closed fracture with routine healing Plan She will transition to a lace up ankle brace. She will continue working on her home exercises program and increase activity as tolerated. If symptoms persist or worsens, patient will contact the office, otherwise follow-up as needed. Orders: Orders XR ankle LT min 3V 04/23/24 M25.572 - Pain in left ankle and joints of left foot Patient Instructions: Scribed for Marybel Goodman PA-C, by Pb Moncada medical device engineer, on 04/23/2024 at 3:30 PM EST.? I, Marybel Goodman PA-C, have personally reviewed and agree with the information entered by the scribe. Coding Level of Care Code Global (31847) Diagnoses Closed fracture of left ankle with routine healing, subsequent encounter S82.892D Encounter type: subsequent encounter Fracture healing: with routine healing Fracture type: closed
[2024-04-23 15:42] VITALS: BMI 30.3
== END 2024-04-23 15:56 | disposition home or self-care (01) ==
PROVIDERS: PCP Internal Medicine; Visit Provider Physician Assistant
DX: S82.892D Other fracture of left lower leg, subsequent encounter for closed fracture with routine healing (principal)
CPT/HCPCS: 99024